=== PATIENT | male | born 1985 | race Caucasian/White ===

== ENCOUNTER 2016-12-29 13:16 | Emergency (ER) | payer OTHER ==
[2016-12-29 13:22] VITALS: RESP 16; TEMP 97.5
--- NOTE | 2016-12-29 14:03 | EDPHY ---
H & P Time Seen by Provider: 12/29/16 13:47 HPI/ROS: CHIEF COMPLAINT: Right hand pain HISTORY OF PRESENT ILLNESS: 31-year-old male right-hand dominant male with up- to-date tetanus states that 4 days ago he accidentally impacted the dorsum of his right 5th metacarpal against the door frame. Complaining of pain ever since. He sustained abrasion. Denies assault or punching another individual. PHYSICAL EXAM (Prior to examination, patient consented to physical exam, hands were washed and my usual and customary physical exam procedures followed) 1) GENERAL: Well-developed, well-nourished, alert and oriented. Appears to be in no acute distress. 2) HEAD: Normocephalic 3) HEENT: Pupils equal, round, reactive to light bilaterally. 4) LUNGS: Breathing comfortably. 5) MUSCULOSKELETAL: Soft compartments. Normal coloration. 6) SKIN: abrasion to 5th metacarpal distally. Tender to palpation 5th metacarpal. No shortening no malrotation. l 7) VASCULAR: pulses and cap refill present are brisk 8) NEUROLOGIC: Radial, ulnar, median nerve function intact with no deficits appreciated on exam DIFFERENTIAL DIAGNOSIS: in no particular order including but not limited to fracture, sprain, compartment syndrome ,septic arthritis Smoking Status: Current every day smoker Constitutional: Initial Vital Signs Temperature (C) 36.4 C 12/29/16 13:20 Heart Rate 56 L 12/29/16 13:20 Respiratory Rate 16 12/29/16 13:20 Blood Pressure 148/80 H 12/29/16 13:20 O2 Sat (%) 95 12/29/16 13:20 O2 Delivery Mode Room Air Allergies/Adverse Reactions: No Known Allergies Allergy (Unverified 12/29/16 13:23) Home Medications: Medication Instructions Recorded Hydrocodone/APAP 5/325 [[place] 1 tab PO Q6 PRN #5 tab 12/29/16 5/325 (RX)] MDM/Departure - MDM Diagnostics: Right Hand, Three Views History: Pain post trauma 4-5 days ago. Fifth metacarpal pain. Comparison: October 10, 2007 Findings: No acute fracture or dislocation is identified. Since 2006 there is a solidly healed fracture of the distal fourth metacarpal metaphysis that results in a relatively short metacarpal. I suspect there is also an older, stable healed distal fifth metacarpal neck fracture. This typically no acute fifth metacarpal fracture is identified. Impression: Nothing acute identified. Dictated By: Giovani Hammond MD images reviewed by myself Procedures: Procedure: Splint A Velcro volar splint was applied by ER artificial insemination technician. After application of the splint I returned and re-examined the patient. The splint was adequately immobilizing the joint and distal to the splint the patient's circulation and sensation were intact. Patient shows no signs of compartment syndrome. Was given orthopedic precautions. ED Course/Re-evaluation: Patient has no signs of infection, no signs of compartment syndrome, no signs of septic arthritis. He has been splinted, recommend follow up with Orthopedics /hand surgery. Usual customary orthopedic precautions and instructions provided. - Depart Disposition: Home, Routine, Self-Care Clinical Impression: Sprain of right hand Qualifiers: Encounter type: initial encounter Qualified Code(s): S63.91XA - Sprain of unspecified part of right wrist and hand, initial encounter Condition: Good Instructions: Hand Sprain (ED) Additional Instructions: Return to the ER immediately if you experience discoloration, have worsening pain, numbness, tingling, or any other symptoms that concern you. If you received x-rays in the emergency department today, be advised, that ligamentous , tendon, muscular, and other non-bony injury cannot be fully ruled out. Try to keep your affected extremity elevated above the level of your chest, and keep cold packs on the affected area, for the next 48 hours. Prescriptions: Hydrocodone/APAP 5/325 [[place] 5/325 (RX)] 1 tab PO Q6 PRN #5 tab PRN Reason: Pain, Severe Referrals: Mina Mendoza MD [Medical Doctor] - 2-3 days, call for appt.
[2016-12-29 14:32] VITALS: BP 139/78; PULSE 59; O2SAT 96
== END 2016-12-29 14:32 | disposition home or self-care (01) ==
DX: S63.91XA Sprain of unspecified part of right wrist and hand, initial encounter (principal); F17.200 Nicotine dependence, unspecified, uncomplicated; W22.8XXA Striking against or struck by other objects, initial encounter
CPT/HCPCS: L3908

== ENCOUNTER 2017-03-19 21:22 | Emergency (ER) | payer OTHER ==
[2017-03-19 21:39] VITALS: RESP 18; TEMP 99; O2SAT 96
--- NOTE | 2017-03-19 21:56 | EDPHY ---
H & P Stated Complaint: chronic R shoulder pain HPI/ROS: HPI CHIEF COMPLAINT: Right shoulder pain, chronic HISTORY OF PRESENT ILLNESS: This patient very pleasant 31-year-old male, denies having any significant medical history, does tell me that he has chronic shoulder pain. States it is located is right shoulder laterally. He states that for the past 2 months he has had a flare up of his chronic shoulder pain. He did see a doctor in [place] a few months ago and had an x-ray and told everything was okay placed on anti-inflammatory pain medicine. He denies any recent trauma. He presents emergency room stating that his pain is worse. No new trauma. Denies numbness or tingling or weakness. In that arm. Past Medical History: Chronic right shoulder pain Past Surgical History: Denies recent surgical history Social History: Denies daily use of alcohol drugs, smokes tobacco Family History: Noncontributory ROS REVIEW OF SYSTEMS: A comprehensive 10 point review of systems is otherwise negative aside from elements mentioned in the history of present illness. Exam Constitutional triage nursing summary reviewed, vital signs reviewed, awake/ alert. Eyes normal conjunctivae and sclera, EOMI, PERRLA. HENT normal inspection, atraumatic, moist mucus membranes, no epistaxis, neck supple/ no meningismus, no raccoon eyes. Respiratory clear to auscultation bilaterally, normal breath sounds, no respiratory distress, no wheezing. Cardiovascular rate normal, regular rhythm, no murmur, no edema, distal pulses normal. Gastrointestinal soft, non-tender, no rebound, no guarding, normal bowel sounds, no distension, no pulsatile mass. Genitourinary no CVA tenderness. Musculoskeletal right shoulder: Tender palpation over lateral shoulder, no significant swelling no signs of trauma. Distally neurovascular intact. Good radial pulse, good arabic translator strength, good cap refill. no midline vertebral tenderness, full range of motion, no calf swelling, no tenderness of extremities , no meningismus, good pulses, neurovascularly intact. Skin pink, warm, & dry, no rash, skin atraumatic. Neurologic awake, alert and oriented x 3, AAOx3, moves all 4 extremities equally, motor intact, sensory intact, CN II-XII intact, normal cerebellar, normal vision, normal speech. Psychiatric normal mood/affect. Heme/Lymph/Immune no lymphadenopathy. Differential Diagnosis: Includes but is not limited to in a particular order, chronic shoulder pain, tendinitis, inversion shoulder syndrome, fracture, rotator cuff injury. Medical Decision Making: Plan for this patient this patient is requesting an x- ray which will perform, ibuprofen 800 mg given here in emergency room. His right arm and shoulder exam is unremarkable. Does have tender palpation lateral shoulder. Her neurovascular intact. Able supinate and pronate his wrist. No tenderness palpation over the biceps tendon but does have tenderness palpation lateral shoulder. His x-ray is unremarkable I will prescribe him ibuprofen 800 mg and will recommend that he follows up with Orthopedics. Will refer him to Orthopedics. Re-evaluation: ED x-ray right shoulder; negative for acute fracture. Image interpreted by myself. Source: Patient - Personal History Current Tetanus Diphtheria and Acellular Pertussis (TDAP): Yes - Medical/Surgical History Hx Asthma: No Hx Chronic Respiratory Disease: No Hx Diabetes: No Hx Cardiac Disease: No Hx Renal Disease: No Hx Cirrhosis: No Hx Alcoholism: No Hx HIV/AIDS: No Hx Splenectomy or Spleen Trauma: No Other PMH: denies - Social History Smoking Status: Current every day smoker Constitutional: Initial Vital Signs Temperature (C) 37.2 C 03/19/17 21:37 Heart Rate 97 03/19/17 21:37 Respiratory Rate 18 03/19/17 21:37 Blood Pressure 147/94 H 03/19/17 21:37 O2 Sat (%) 96 03/19/17 21:37 O2 Delivery Mode Room Air Allergies/Adverse Reactions: No Known Allergies Allergy (Unverified 12/29/16 13:23) Home Medications: Medication Instructions Recorded Hydrocodone/APAP 5/325 [[place] 1 tab PO Q6 PRN #5 tab 12/29/16 5/325 (RX)] Ibuprofen [Motrin (*)] 800 mg PO Q6-8PRN #10 tab 03/19/17 Medical Decision Making - Diagnostics Imaging Results: Imaging Impressions Shoulder X-Ray 03/19/17 22:02 Impression: 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 If there is further clinical concern regarding the patient's shoulder pain and difficulty abducting, MR imaging could be considered to assess the rotator cuff. - Data Points Medications Given: Discontinued Medications Ibuprofen (Motrin) 800 mg PO EDNOW ONE Stop: 03/19/17 22:03 Last Admin: 03/19/17 22:20 Dose: 800 mg Departure - Departure Disposition: Home, Routine, Self-Care Clinical Impression: Shoulder pain Qualifiers: Laterality: right Chronicity: acute Qualified Code(s): M25.511 - Pain in right shoulder Condition: Good Instructions: Arthralgia (ED), Shoulder Pain (ED) Additional Instructions: 1. Take anti-inflammatory pain medicine. 2. Ice your shoulder. 3. Follow up with Orthopedics call their for an appointment. Referrals: NONE *PRIMARY CARE P,. [Primary Care Provider] - As per Instructions Jean Fry MD [Medical Doctor] - As per Instructions Prescriptions: Ibuprofen [Motrin (*)] 800 mg PO Q6-8PRN #10 tab
[2017-03-19] MEDS ORDERED: IBUPROFEN 200 MG TAB PO ONE (22:02)
[2017-03-19 23:04] VITALS: BP 138/92; PULSE 87
== END 2017-03-19 23:04 | disposition home or self-care (01) ==
DX: M25.511 Pain in right shoulder (principal); F17.200 Nicotine dependence, unspecified, uncomplicated